=== PATIENT | female | born 1960 | race Caucasian/White ===

== ENCOUNTER 2016-09-13 18:14 | Emergency (ER) | payer OTHER ==
[~2016-09-13] VITALS: Ht 172.7 cm; Wt 131.5 kg
[~2016-09-13 18:14] MED LIST: ASPI81TA2 PO; BUPR100T4 PO
--- NOTE | 2016-09-13 18:16 | NUR ---
PRESENTS SELF TO ED DUE TOCOUGH, CONGESTION, FEVER X 2 DAYS. PATIENT IN NO ACUTE DISTRESS. RESPIRATION EVEN AND UNLABORED; PATIENT'S SKIN IS WARM TO TOUCH AND NON DIAPHORETIC. AFEBRILE AT THIS TIME. VSS. AWAITING FOR EVAL
--- NOTE | 2016-09-13 18:41 | NUR ---
Patient was taken to radiology dept
--- NOTE | 2016-09-13 19:09 | NUR ---
REPORT GIVEN TO FILI AWAN
--- NOTE | 2016-09-13 19:17 | NUR ---
Patient discharged to home in stable condition. Written and verbal after care instructions given. Patient verbalizes understanding of instruction. Patient is ambulatory with steady gait.
[2016-09-13 19:18] VITALS: BP 130/78
== END 2016-09-13 19:20 | disposition home or self-care (01) ==
LOC: ER 18:16
DX: J22 Unspecified acute lower respiratory infection (principal); I48.92 Unspecified atrial flutter; F32.9 Major depressive disorder, single episode, unspecified; E07.9 Disorder of thyroid, unspecified; Z88.8 Allergy status to other drugs, medicaments and biological substances
CPT/HCPCS: 71010-TC; A4606; Z7610

== ENCOUNTER 2017-11-22 13:08 | Emergency (ER) | payer OTHER ==
[~2017-11-22] VITALS: Ht 167.6 cm; Wt 136.1 kg
[~2017-11-22 13:08] MED LIST changes: +ASPI-1169 PO; -ASPI81TA2 PO
[2017-11-22 13:11] VITALS: BP 153/84
== END 2017-11-22 15:00 | disposition home or self-care (01) ==
LOC: ER 13:19
DX: H57.8 Other specified disorders of eye and adnexa (principal); I10 Essential (primary) hypertension; I48.92 Unspecified atrial flutter; F32.9 Major depressive disorder, single episode, unspecified; E07.9 Disorder of thyroid, unspecified; Z88.8 Allergy status to other drugs, medicaments and biological substances; Z60.2 Problems related to living alone; Z79.82 Long term (current) use of aspirin
CPT/HCPCS: 99282; A4606; Z7610

== ENCOUNTER 2019-07-19 21:56 | Emergency (ER) | payer MEDICAID, OTHER ==
[~2019-07-19] VITALS: Ht 172.7 cm; Wt 108.9 kg
--- NOTE | 2019-07-19 22:18 | NUR ---
C/C VOMITTING SINCE 8PM, +NAUSEOUS, THIRD TIME THIS WEEK. C/O MID BACK PAIN, PT AWAKE, ALERT, -SOB, NAD NOTED, VSS, PENDING MD BEJARANO
[2019-07-19] MEDS ORDERED: ONDANSETRON HCL/PF 4 MG/2 ML VIAL IVP ONE (22:30)
[2019-07-19] MEDS ORDERED: IV NS 0.9% 1,000 ML BAG IV ONE (22:30)
[2019-07-19] MEDS ORDERED: MORPHINE SULFATE INJ 2 MG/ML DISP.SYRIN IV ONE (22:30)
[2019-07-19 22:47] LABS: BASOPHILS # (AUTO) 0.1 /CMM (0.0-0.2); EOSINOPHILS % (AUTO) 3.9 % (0.0-6.0); HEMATOCRIT 44 % (33-45); HEMOGLOBIN 14.8 g/dL (11.5-14.8); LYMPHOCYTES # (AUTO) 2.1 /CMM (0.8-4.8); LYMPHOCYTES % (AUTO) 36.1 % (20.0-44.0); MEAN CORPUSCULAR HGB CONC 34 g/dl (31.0-36.0); MEAN CORPUSCULAR VOLUME 94 fL (82-100); MONOCYTES # (AUTO) 0.5 /CMM (0.1-1.30); MONOCYTES % (AUTO) 8.2 % (2.0-12.0); NEUTROPHILS % (AUTO) 50.8 % (43.0-81.0); PLATELET COUNT (AUTO) 208 /CMM (150-450); RED BLOOD CELL COUNT(AUTO) 4.62 MIL/uL (4.0-5.2); WHITE BLOOD COUNT (AUTO) 5.9 K/uL (4.3-11.0)
[2019-07-19] MEDS ORDERED: IOHEXOL-300 100 ML VIAL IV ONE (22:54)
[2019-07-19] MEDS ORDERED: CT SWABBABLE VALVE TRANS SET 1 EA INFUS.SET MC ONE (22:54)
[2019-07-19] MEDS ORDERED: IV NS 0.9% 250 ML IV ONE (22:54)
[2019-07-19 22:56] LABS: CALCIUM, SERUM 9.1 mg/dL (8.5-10.1); CARBON DIOXIDE 30 mmol/L (21-32); CHLORIDE 105 mmol/L (98-107); CREATININE 0.9 mg/dL (0.6-1.3); GLUCOSE 101 mg/dL (74-106); POTASSIUM 3.8 mmol/L (3.5-5.1); SODIUM SERUM 140 mmol/L (136-145); UREA NITROGEN, BLOOD 20 mg/dL (7-18)
[2019-07-19 23:01] LABS: ALANINE AMINOTRANSFERASE 28 U/L (12-78); ALBUMIN 4.2 g/dL (3.4-5.0); ALKALINE PHOSPHATASE 86 U/L (46-116); ASPARTATE AMINOTRANSFERASE 23 U/L (15-37); BILIRUBIN,DIRECT 0.1 mg/dL (0.0-0.2); BILIRUBIN,TOTAL 0.4 mg/dL (0.2-1.0); LIPASE 258 U/L (73-393); TOTAL PROTEIN, SERUM 7.6 g/dL (6.4-8.2)
[2019-07-19] MEDS ORDERED: ONDANSETRON HCL/PF 4 MG/2 ML VIAL ONE (23:05)
[2019-07-19] MEDS ORDERED: MORPHINE SULFATE INJ 4 MG/ML DISP.SYRIN ONE (23:05)
[2019-07-19 23:24] LABS: APPEARANCE,URINE Clear (CLEAR); BILIRUBIN,URINE Negative (NEGATIVE); BLOOD, URINE Negative Ery/uL (NEGATIVE); COLOR,URINE Yellow (YELLOW); KETONES,URINE 15 (NEGATIVE); LEUKOCYTE ESTERASE ,URINE Negative (NEGATIVE); NITRITE, URINE Negative (NEGATIVE); PH,URINE 5.5 (5.0-8.0); PROTEIN,URINE Negative (NEGATIVE); UGLUCOSE Negative (NEGATIVE); UROBILINOGEN,URINE 0.2 EU/dL (0.2)
[2019-07-20 00:05] LABS: BACTERIA,URINE None seen /HPF (None Seen); RBC,URINE 0-2 /HPF (0-2); SQUAMOUS EPITHELIAL CELL,UR Few /HPF (None Seen); WBC,URINE 0-2 /HPF (0-3)
[2019-07-20] MEDS ORDERED: MORPHINE SULFATE INJ 2 MG/ML DISP.SYRIN ONE (00:10)
[2019-07-20] MEDS ORDERED: METOCLOPRAMIDE HCL 10 MG/2 ML VIAL ONE (00:10)
[2019-07-20] MEDS ORDERED: MORPHINE SULFATE INJ 2 MG/ML DISP.SYRIN IV ONE (00:30)
[2019-07-20] MEDS ORDERED: METOCLOPRAMIDE HCL 10 MG/2 ML VIAL IV ONE (00:30)
--- NOTE | 2019-07-20 01:23 | NUR ---
Patient discharged to home in stable condition. Written and verbal after care instructions given. Patient verbalizes understanding of instruction. IV removed. Catheter intact and site benign. Pressure and 4x4 applied to site. No bleeding noted.
[2019-07-20 01:25] VITALS: BP 139/70
== END 2019-07-20 01:25 | disposition home or self-care (01) ==
LOC: ER 22:08
DX: K29.70 Gastritis, unspecified, without bleeding (principal); Z79.899 Other long term (current) drug therapy; Z79.82 Long term (current) use of aspirin; Z88.8 Allergy status to other drugs, medicaments and biological substances
CPT/HCPCS: 36415; 71045; 74177; 80048; 80076; 81001; 83690; 84484; 85025; 85730; 93005; 96361; 96374; 96375 ×2; 96376; 99285; J2270 ×2; J2405; J2765; J7030 ×2; J7050; Q9967; 81000-TC

== ENCOUNTER 2022-06-09 21:33 | Emergency (ER) | payer MEDICAID ==
[~2022-06-09] VITALS: Ht 172.7 cm; Wt 117.9 kg
[2022-06-09 22:09] VITALS: BP 135/61
--- NOTE | 2022-06-09 22:09 | NUR ---
BIBFAMILY C/O L HIP & L SHOULDER PAIN. DISCOLORATION TO LFA. GLF TODAY -LOC, -BLOODTHINNERS -HITHEAD. PT A/OX4. TOLERATING R/A WELL WITH NO RESP DISTRESS. SAFETY MEASURES IN PLACE.
[2022-06-09] MEDS ORDERED: CYCLOBENZAPRINE 10 MG TABLET ONE (22:24)
[2022-06-09] MEDS ORDERED: KETOROLAC TROMETHAMINE INJ 30 MG/ML VIAL ONE (22:24)
--- NOTE | 2022-06-09 22:25 | NUR ---
WIND INSTRUMENT REPAIRER AT PT'S BEDSIDE
[2022-06-09] MEDS ORDERED: KETOROLAC TROMETHAMINE INJ 60 MG/2 ML VIAL IM ONE (22:30)
[2022-06-09] MEDS ORDERED: CYCLOBENZAPRINE 10 MG TABLET PO ONE (22:30)
[2022-06-09] MEDS ORDERED: CYCL10TA9 PO ×2 (23:29→23:45)
[2022-06-09] MEDS ORDERED: NAPR500T6 PO ×2 (23:29→23:45)
--- NOTE | 2022-06-10 00:03 | NUR ---
Patient discharged to home in stable condition. Written and verbal after care instructions given. Patient verbalizes understanding of instruction.
== END 2022-06-10 00:08 | disposition home or self-care (01) ==
LOC: ER 21:54
DX: S76.012A Strain of muscle, fascia and tendon of left hip, initial encounter (principal); S50.12XA Contusion of left forearm, initial encounter; I48.92 Unspecified atrial flutter; Z98.890 Other specified postprocedural states; F32.A Depression, unspecified; Z79.82 Long term (current) use of aspirin; Z88.8 Allergy status to other drugs, medicaments and biological substances; Z79.899 Other long term (current) drug therapy; W01.0XXA Fall on same level from slipping, tripping and stumbling without subsequent striking against object, initial encounter; Y93.89 Activity, other specified; Y92.89 Other specified places as the place of occurrence of the external cause; Y99.8 Other external cause status
CPT/HCPCS: 99284; 96372; 72170; 73090; 73110; J1885